=== PATIENT | female | born 1990 | race Caucasian/White ===

== ENCOUNTER 2021-01-19 19:13 | Emergency (ER) | payer SELFPAY ==
[~2021-01-19] VITALS: Ht 170.2 cm; Wt 69.6 kg
[2021-01-19] MEDS ORDERED: KETOROLAC 15 MG/ML VIAL. ONE (19:39)
[2021-01-19] MEDS ORDERED: FAMOTIDINE 20 MG/2 ML VIAL ONE (19:39)
[2021-01-19] MEDS ORDERED: ONDANSETRON PF 4 MG/2 ML VIAL. ONE (19:39)
[2021-01-19] MEDS ORDERED: ONDANSETRON PF 4 MG/2 ML VIAL. IVP ONE (19:45)
[2021-01-19] MEDS ORDERED: IV NORMAL SALINE 1,000ML 1,000 ML IV ONE ×2 (19:45→20:30)
[2021-01-19] MEDS ORDERED: KETOROLAC 15 MG/ML VIAL. IVP ONE (19:45)
[2021-01-19] MEDS ORDERED: FAMOTIDINE 20 MG/2 ML VIAL IVP ONE (19:45)
[2021-01-19 20:36] LABS: BASO % 0 % (0-3); EOS % 0 % (0-3); HEMATOCRIT 29.5 % (36.0-47.0); HEMOGLOBIN 9.3 g/dL (12.0-15.5); LYMPH # 0.2 x10^3/uL (1.0-4.8); LYMPH % 1 % (24-48); MEAN CORPUSCULAR HEMOGLOBIN 22 pg (25-35); MEAN CORPUSCULAR HGB CONC 31 g/dL (31-37); MEAN CORPUSCULAR VOLUME 69 fL (79-100); MONO # 0.6 x10^3/uL (0.0-1.1); MONO % 3 % (0-9); NEUT # 18.7 x10^3uL (1.8-7.7); NEUT % 96 % (31-73); PLATELET COUNT 138 x10^3/uL (140-400); RED BLOOD COUNT 4.29 x10^6/uL (3.50-5.40); RED CELL DISTRIBUTION WIDTH 16.2 % (11.5-14.5); WHITE BLOOD COUNT 19.4 x10^3/uL (4.0-11.0)
--- NOTE | 2021-01-19 20:47 | PHYS DOC ---
Past History Past Medical History: No Pertinent History Past Surgical History: No Surgical History Smoking: Cigarettes Alcohol Use: Occasionally Drug Use: Marijuana, Methamphetamine, Opiates (Heroin) General Adult EDM: Chief Complaint: FLU SYMPTOM HPI: HPI: 30-year-old female presents with generalized malaise, body aches, fever/chills, low back pain, headache, and nausea and vomiting that has been progressive over the last 2 days. Patient does report history of IV drug abuse with heroin- last used 2 days. Patient denies known exposure to COVID-19. Denies cough. Denies rash. Denies trauma. Patient reports noting some increased lower extremity edema to her ankles 2 days ago. Denies . Patient reports currently on her menstrual period. Review of Systems: Review of Systems: Constitutional: Reports fever, chills, and generalized malaise Eyes: Denies redness or eye pain HENT: Denies nasal congestion or sore throat Respiratory: Denies cough or shortness of breath Cardiovascular: Denies chest pain or palpitations GI: Denies abdominal pain; reports nausea and vomiting : Denies dysuria or hematuria Musculoskeletal: Reports back pain and bilateral lower extremity edema Integument: Denies rash or skin lesions Neurologic: Reports headache; denies focal weakness or sensory changes Complete systems were reviewed and found to be within normal limits, except as documented in this note. Current Medications: Current Meds: Current Medications Medications (Trade) Dose Ordered Sig/[facility] Start Time Stop Time Status Last Admin Dose Admin Ceftriaxone Sodium 2 gm/ Sodium Chloride 100 ml @ 200 mls/hr 1X ONCE 01/19/21 20:45 01/19/21 21:14 UNV Famotidine (Pepcid Vial) 20 mg 1X ONCE 01/19/21 19:45 01/19/21 20:19 DC 01/19/21 20:18 20 MG Ketorolac Tromethamine (Toradol 15mg Vial) 15 mg 1X ONCE 01/19/21 19:45 01/19/21 20:19 DC 01/19/21 20:18 15 MG Ondansetron HCl (Zofran) 4 mg 1X ONCE 01/19/21 19:45 01/19/21 20:19 DC 01/19/21 20:18 4 MG Sodium Chloride 1,000 ml @ 1,000 mls/hr 1X ONCE 01/19/21 20:30 01/19/21 21:29 01/19/21 20:32 1,000 MLS/HR Allergies: Allergies: Allergies Coded Allergies Type Severity Reaction Last Updated Verified No Known Drug Allergies 01/19/21 No Physical Exam: PE: Constitutional: Well developed, well nourished, uncomfortable, ill-appearing HENT: Normocephalic, atraumatic Eyes: PERRL, EOMI, conjunctiva normal, no discharge Neck: Normal range of motion, no tenderness, supple, no meningeal signs Lungs & Thorax: No respiratory distress, equal chest rise and fall Cardiovascular: Tachycardia noted, radial and pedal pulses +2 bilaterally Abdomen: Soft, no tenderness, no guarding/rebound tenderness/distention Skin: Warm, dry, no erythema, no rash Back: No midline tenderness, left paraspinal mid to upper lumbar tenderness on palpation, no CVA tenderness Extremities: No tenderness, ROM intact, 1+ pedal edema bilaterally Neurologic: Alert and oriented X 3, normal motor function, normal sensory function, no focal deficits noted Psychologic: Affect normal, judgment normal Current Patient Data: Vital Signs: Vital Signs Date Time Temp Pulse Resp B/P (MAP) Pulse Ox O2 Delivery O2 Flow Rate FiO2 01/19/21 19:13 98.8 125 20 83/33 (50) 100 Room Air EKG: EKG: @1958 Sinus tachycardia at 110bpm, NO ST elevation, QRS 88ms, QT/QTc 330/452ms, low voltage QRS Radiology/Procedures: Radiology/Procedures: PROCEDURE: CHEST AP ONLY Study: XR CHEST 1V Indication: Weakness. Cough. Comparison: None. Findings: Slight asymmetric haziness at the right lower lung. No dense consolidation. No pleural effusion or pneumothorax. The cardiomediastinal silhouette is within normal limits for size. Impression: Mild asymmetric haziness at the lower aspect of the right lung could represent summation artifact though a mild infectious infiltrate is possible. Electronically signed by: KITA LONGORIA MD (01/19/2021 10:26 PM) [facility] PROCEDURE: CT THORACIC & LUMBAR SPINE W/CONTRAST INDICATION: Fever, back pain, IV drug use TECHNIQUE: Sequential axial images through the thoracic and lumbar spine obtai cait following the administration of 60 mL of Isovue-370 IV contrast. Sagittal and coronal reformatted images were reconstructed from the axial data and reviewed. Comparisons: None FINDINGS: Thoracic spine: Vertebral body heights and alignment are well-maintained. Fracture to the thoracic spine is not identified. No significant spondylotic change in the thoracic spine. Visualized paraspinal soft tissues are unremarkable. Lumbar spine: Vertebral body heights and alignment are well-maintained. Fracture to the lumbar spine is not identified. No significant spondylotic changes lumbar spine. Visualized paraspinal soft tissues are unremarkable. IMPRESSION: Unremarkable evaluation of the thoracic and lumbar spine. It should be noted that evaluation for epidural abscess is markedly limited on CT. If there are persistent concerns for epidural abscess MRI with contrast is recommended for definitive evaluation. Exposure: One or more of the following in the visualized dose reduction techniques were utilized for this examination: 1. Automated exposure control 2. Adjustment of the MA and/or KV according to patient size 3. Use of iterative of reconstructive technique Electronically signed by: Taye Wolfe MD (01/19/2021 10:27 PM) [facility] PROCEDURE: PORTABLE CHEST 1V XR CHEST 1V History: Reason: CENTRAL LINE PLACEMENT / Spl. Instructions: / History: Comparison: January 19, 2021 Findings: Interval placement right IJ central line with tip projecting over the lower SVC. No pneumothorax. Mild bibasilar atelectasis. No pleural effusion. Normal heart size. Impression: 1. Interval placement right IJ central line. No pneumothorax. Electronically signed by: Tor Paul DO (01/19/2021 11:54 PM) [facility] Score: C/O Chest Pain: N/A Course & Med Decision Making: Course & Med Decision Making Pertinent Labs and Imaging studies reviewed. (See chart for details) Ill-appearing patient presents with generalized malaise, body aches, fever/chills, low back pain primarily to left mid to upper lumbar region, headache, and nausea/vomiting x 2 days. History of IVDA. Cannot exclude epidural abscess. Cannot exclude COVID-19 infection. COVID-[address] Concern for sepsis. Patient also noted with low blood pressure. Empiric antibiotics initiated. Labs obtained and posted to chart. Significant leukocytosis with bandemia noted. Lactic acid 3.6. CRP elevated. ESR normal. IV fluid bolusing provided at 30 mL/kg. Chest x-ray cannot exclude small focal infiltrate. CT thoracic/lumbar spine obtained without definitive signs of abscess. (Of note: MRI better study for evaluation however MRI currently not available at [facility]) Patient with continued hypotension despite adequate IV resuscitation. Patient with need for central line placement. A right IJ placed under bedside ultrasound guidance. Chest x-ray confirmed good positioning. Levophed initiated. Patient requiring transfer to higher level center for admission for further evaluation and treatment with MRI capability. Discussed with Dr. Velasco (hospitalist) who is in agreement with admission to [facility]. Discussed findings and plan with patient, who acknowledges understanding and agreement. COVID-19 CRITERIA: The patient was evaluated during the global COVID-19 pandemic, and that diagnosis was suspected/considered upon their initial presentation. Their evaluation, treatment and testing was consistent with current guidelines for patients who present with complaints or symptoms that may be related to COVID-19. Dragon Disclaimer: Dragon Disclaimer: This electronic medical record was generated, in whole or in part, using a voice recognition dictation system. Central Line Central Line : Central Line Lumen: triple Central Line Procedure: sterile drapes applied, sterile dressing applied Central Line Postion: internal jugular (R) Anesthesia: Lidocaine cc's of anesthesia: 3 Complications: none Central Line Post Position: sutured, good blood return, position confirmed w/ CXR Progress Written consent obtained. Time out performed. Hand hygiene utilized. Sterile attired donned. Wound cleaned with ChloraPrep. Sterile drapes applied. RIJ visuallized with bedside ultrasound guidance. Anesthesia obtained via a 25-gauge hypodermic needle with (3) mL's of lidocaine 1% without epinephrine. Triple lumen central line placed over guidewire under bedside ultrasound guidance on 1st attempt via Seldinger technique. Good blood return and flow to all 3 ports. Catheter sutured in place and sterile dressing applied. Patient tolerated procedure well and without difficulty. Departure Departure: Impression: Primary Impression: Septic shock Additional Impressions: Back pain Qualified Codes: M54.5 - Low back pain Intravenous drug abuse Suspected 2019 novel coronavirus infection Elevated liver enzymes Hypomagnesemia Acute renal insufficiency Disposition: 02 DC/TRF OTHER SHORT TERM HOS ([facility]- Dr. Velasco accepting transfer for admission) Admitting Physician: Mesha Velasco Condition: GUARDED Referrals: PCP,NO (PCP) COVID-19 Assessment COVID-19 Patient Risks: Age 65 or older: No Sign of co-morbidity: No Exp to person + for COVID: No Exp to PUI: No Travel from affected area: No Lower respiratory symptoms: No Fever: Yes Other: Yes PPE Use: Full PPE with N95 mask or PAPR: Yes Critical Care Time Critical care time was 30 minutes which includes time at bedside, spent in discussion of patient's care with specialists and/or family members, with interpretation of laboratory and/or radiological studies and is exclusive of procedures. Sepsis Assessment Date and Time of Assessment Date: Jan 19, 2021 Time: 22:00 Fluid Challenge: Is the fluid challenge complet: Yes IBW Target Volume Used: No BMI > 30: No Vital Signs Vital Signs Vital Signs Date Time Temp Pulse Resp B/P (MAP) Pulse Ox O2 Delivery O2 Flow Rate FiO2 01/19/21 19:13 98.8 125 20 83/33 (50) 100 Room Air Temperature Source: Oral Respirations Respiratory Effort: Normal, Non-Labored Respiratory Pattern: Normal Cardiovascular Pulse Rhythm: Irregular Heart: S1 and S2 normal Lung Sounds Breath Sounds: Clear Capillary Refill Capillary Refill: Rt Hand < 3 seconds Peripheral Pulse Pulse Location: Radial Pulse Strength: Normal (2+) Pulse Assessment Method: Palpation Integumentary Skin: Warm, Dry, No Rashes Skin Moisture: Dry Skin Turgor: Normal Skin Color: warm, dry Fingernail Color: WNDOUGLAS TALAVERA DO Jan 19, 2021 20:47
[2021-01-19] MEDS ORDERED: IV NORMAL SALINE 100ML 100 ML ONE (20:55)
[2021-01-19] MEDS ORDERED: IOHEXOL 300 MG/ML 75 ML VIAL. IV ONE (21:00)
[2021-01-19] MEDS ORDERED: CONTRAST GIVEN. MC PRN (21:00)
[2021-01-19 21:05] LABS: CALCIUM 7.7 mg/dL (8.5-10.1); CREATININE 1.2 mg/dL (0.6-1.0); GFR 52.7; POTASSIUM 3.5 mmol/L (3.5-5.1)
[2021-01-19 21:06] LABS: PREG TEST PT QUAL NEGATIVE (NEG)
[2021-01-19 21:09] LABS: ALBUMIN 2.9 g/dL (3.4-5.0); ALBUMIN/GLOBULIN RATIO 0.9 (1.0-1.7); MAGNESIUM 1.6 mg/dL (1.8-2.4); TOTAL BILIRUBIN 2.9 mg/dL (0.2-1.0); TOTAL PROTEIN 6.3 g/dL (6.4-8.2)
[2021-01-19] MEDS ORDERED: MAGNESIUM SULFATE 2GM 50 ML IV ONE (22:00)
[2021-01-19] MEDS ORDERED: VANCOMYCIN 1.75 GM in IV NORMAL SALINE 500ML 500 ML IV ONE (22:00)
[2021-01-19] MEDS ORDERED: IV NORMAL SALINE 500ML 500 ML IV ONE (22:00)
[2021-01-19] MEDS ORDERED: IV NORMAL SALINE 500ML 500 ML ONE ×2 (22:03→22:23)
[2021-01-19] MEDS ORDERED: VANCOMYCIN 1 GM VIAL. ONE ×2 (22:03→22:23)
[2021-01-19 22:28] LABS: % BANDS 22 % (0-9); % LYMPHS 1 % (24-48); % METAS 6 % (0-0); % MONOS 1 % (0-10); % MYELOS 1 % (0-0); % SEGS 69 % (35-66); HYPOCHROMIA MOD; MICROCYTOSIS MOD; PLT ESTIMATE DECREASED (ADEQUATE)
--- NOTE | 2021-01-19 22:28 | RAD ---
Study: XR CHEST 1V Indication: Weakness. Cough. Comparison: None. Findings: Slight asymmetric haziness at the right lower lung. No dense consolidation. No pleural effusion or pn eumothorax. The cardiomediastinal silhouette is within normal limits for size. Impression: Mild asymmetric haziness at the lower aspect of the right lung could represent summation artifact tho ugh a mild infectious infiltrate is possible. Electronically signed by: KITA LONGORIA MD (01/19/2021 10:26 PM) [facility]
--- NOTE | 2021-01-19 22:29 | RAD ---
Exam: CT the thoracic and lumbar spine with contrast INDICATION: Fever, back pain, IV drug use TECHNIQUE: Sequential axial images through the thoracic and lumbar spine obtained following the admin istration of 60 mL of Isovue-370 IV contrast. Sagittal and coronal reformatted images were reconstruc marylou from the axial data and reviewed. Comparisons: None FINDINGS: Thoracic spine: Vertebral body heights and alignment are well-maintained. Fracture to the thoracic spine is not identified. No significant spondylotic change in the thoracic spine. Visualized paraspinal soft tissues are unremarkable. Lumbar spine: Vertebral body heights and alignment are well-maintained. Fracture to the lumbar spine is not identified. No significant spondylotic changes lumbar spine. Visualized paraspinal soft tissues are unremarkable. IMPRESSION: Unremarkable evaluation of the thoracic and lumbar spine. It should be noted that evaluation for epid ural abscess is markedly limited on CT. If there are persistent concerns for epidural abscess MRI wit h contrast is recommended for definitive evaluation. Exposure: One or more of the following in the visualized dose reduction techniques were utilized for this examination: 1. Automated exposure control 2. Adjustment of the MA and/or KV according to patient size 3. Use of iterative of reconstructive technique Electronically signed by: Taye Wolfe MD (01/19/2021 10:27 PM) [facility]
[2021-01-19] MEDS ORDERED: IV NORMAL SALINE 250ML 250 ML ONE (23:04)
[2021-01-19] MEDS ORDERED: NOREPINEPHRINE BITARTRATE 4 MG/4 ML VIAL. IV ONE (23:04)
[2021-01-19] MEDS ORDERED: NOREPINEPHRINE BITARTRATE 8 MG in IV NORMAL SALINE 250ML 250 ML IV PRN (23:15)
--- NOTE | 2021-01-19 23:55 | EKG ---
[address] [address] Test Date: 2021-01-19 Test Time: 19:58:49 Pat Name: ANNA GARG Department: Room: Gender: F Research Associate Professor: : 1990 Requested By: DOUGLAS JACOBSON Order Number: [id number] Reading MD: Measurements Intervals [place] Rate: 110 P: 55 SD: 134 QRS: -12 QRSD: 88 T: 57 QT: 330 QTc: 452 Interpretive Statements SINUS TACHYCARDIA LEFTWARD AXIS OTHERWISE NORMAL ECG RI6.02 No previous ECG available for comparison
--- NOTE | 2021-01-19 23:56 | RAD ---
XR CHEST 1V History: Reason: CENTRAL LINE PLACEMENT / Spl. Instructions: / History: Comparison: January 19, 2021 Findings: Interval placement right IJ central line with tip projecting over the lower SVC. No pneumothorax. Mil d bibasilar atelectasis. No pleural effusion. Normal heart size. Impression: 1. Interval placement right IJ central line. No pneumothorax. Electronically signed by: Tor Paul DO (01/19/2021 11:54 PM) [facility]
[2021-01-20 00:07] LABS: BARBITURATES NEG (NEG); BENZODIAZEPINES NEG (NEG); CANNABINOIDS NEG (NEG); COCAINE NEG (NEG); METHADONE NEG (NEG); OPIATES POS (NEG); PHENCYCLIDINE NEG (NEG)
[2021-01-20 00:21] LABS: BILIRUBIN,URINE SMALL (NEG); CLARITY,URINE HAZY; COLOR,URINE AMBER; GLUCOSE,URINE NEG (NEG)
[2021-01-20 00:22] LABS: BACTERIA,URINE 0 /HPF (0-FEW); NITRITE,URINE NEG (NEG); SQUAMOUS EPITHELIAL CELL,UR MANY /LPF; UROBILINOGEN,URINE 0.2 mg/dL (0.2 mg/dL)
[2021-01-20 00:23] LABS: AMPHETAMINE/METHAMPHETAMINE POS (NEG)
[2021-01-20] MEDS ORDERED: ACETAMINOPHEN 500 MG TABLET PO ONE (00:30)
[2021-01-20 00:39] VITALS: BP 112/74
== END 2021-01-20 00:45 | disposition short-term general hospital (02) ==
LOC: ER 19:22
DX: A41.9 Sepsis, unspecified organism (principal); R65.21 Severe sepsis with septic shock; N17.9 Acute kidney failure, unspecified; E83.42 Hypomagnesemia; R74.8 Abnormal levels of other serum enzymes; F19.10 Other psychoactive substance abuse, uncomplicated; R51.9 Headache, unspecified; R11.2 Nausea with vomiting, unspecified; R60.0 Localized edema; M54.5 Low back pain; F17.210 Nicotine dependence, cigarettes, uncomplicated; Z20.822 Contact with and (suspected) exposure to COVID-19
CPT/HCPCS: 36415; 36556; 71045; 72129; 72132; 80053; 80307; 81001; 82553; 83605; 83690; 83735; 83880; 84484; 84703; 85007; 85025; 85651; 86140; 87040; 93005; 96361; 96365; 96366; 96367; 96375; 99291; C9803; G0480; J0696; J1885; J2405; J3010; J3370; J3475; J3490; J7030; J7040; Q9967; U0003; U0005